=== PATIENT | male | born 1985 | race American Indian/Alaskan Native ===

== ENCOUNTER 2021-06-14 13:19 | Emergency (ER) | payer MEDICAID | END 2021-06-14 14:06 | disposition left against medical advice (07) | LOC: DL.ED 13:19 | DX: M25.511 Pain in right shoulder (principal); Z53.21 Procedure and treatment not carried out due to patient leaving prior to being seen by health care provider ==

== ENCOUNTER 2021-06-14 20:46 | Emergency (ER) | payer OTHER, MEDICAID ==
[2021-06-14] MEDS ORDERED: Acetaminophen/oxyCODONE 325-5 MG Tab PO ONE (20:47)
[2021-06-14] MEDS ORDERED: Ketorolac 30 MG/ML SDV IM ONE (21:18)
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
[2021-06-14] MEDS ORDERED: Acetaminophen/oxyCODONE 325-5 MG Tab ONE (22:07)
--- NOTE | 2021-06-14 23:00 | CR ---
PROCEDURE INFORMATION: Exam: XR Right Shoulder Exam date and time: 06/14/2021 9:25 PM Age: 35 years old Clinical indication: Other: Fall/pain; Additional info: Gross deformity to right anterior shoulder TECHNIQUE: Imaging protocol: XR Right shoulder. Views: 2 or more views. COMPARISON: No relevant prior studies available. FINDINGS: Bones/joints: A mildly comminuted and moderately overriding fracture of approximately the junction of the mid and distal thirds of the right clavicle is present. No fracture or subluxation of the humeral head is noted. Soft tissues: Normal. IMPRESSION: Closed fracture of the right clavicle as above.
== END 2021-06-14 22:15 | disposition home or self-care (01) ==
LOC: DL.ED 20:46
DX: S42.021A Displaced fracture of shaft of right clavicle, initial encounter for closed fracture (principal); E66.9 Obesity, unspecified; Z68.33 Body mass index [BMI] 33.0-33.9, adult; Z72.0 Tobacco use; V29.9XXA Motorcycle rider (driver) (passenger) injured in unspecified traffic accident, initial encounter; Y93.55 Activity, bike riding
CPT/HCPCS: 73030; 96372; 99283; A9270; J1885

== ENCOUNTER 2021-10-06 21:07 | Emergency (ER) | payer MEDICAID ==
[2021-10-06] MEDS ORDERED: Acetaminophen 500 MG Tab PO ONE (21:52)
[2021-10-06 22:44] LABS: CORONAVIRUS COVID-19 NAA POSITIVE (NEGATIVE)
== END 2021-10-06 23:17 | disposition home or self-care (01) ==
LOC: DL.ED 21:07
DX: U07.1 COVID-19 (principal); I10 Essential (primary) hypertension; E66.9 Obesity, unspecified; Z68.33 Body mass index [BMI] 33.0-33.9, adult; Z72.0 Tobacco use
CPT/HCPCS: 0240U; 99284; A9270-GY

== ENCOUNTER 2022-02-14 16:31 | Emergency (ER) | payer OTHER, MEDICAID ==
[2022-02-14] MEDS ORDERED: Sodium Chloride 0.9% 10 ML Syringe FLUSH PRN (16:40)
[2022-02-14] MEDS ORDERED: Iopamidol 612 MG/ML 100 ML Bottle IVPUSH ONE (16:52)
[2022-02-14 17:12] LABS: ANION GAP 16.8 mEq/L (7-13); CHLORIDE,CL 106 mmol/L (98-107); SODIUM,NA 143 mmol/L (136-145)
[2022-02-14] MEDS ORDERED: Ondansetron 4 MG/2 ML SDV IVPUSH ONE (17:23)
[2022-02-14] MEDS ORDERED: HYDROmorphone 0.5 MG/0.5 ML Syringe IVPUSH ONE (17:23)
[2022-02-14] MEDS ORDERED: Ondansetron 4 MG/2 ML SDV IV ONE (17:30)
[2022-02-14] MEDS ORDERED: HYDROmorphone 0.5 MG/0.5 ML Syringe IV ONE (17:31)
== END 2022-02-14 18:26 | disposition home or self-care (01) ==
LOC: DL.ED 16:31
DX: S27.322A Contusion of lung, bilateral, initial encounter (principal); I10 Essential (primary) hypertension; E66.9 Obesity, unspecified; Z68.30 Body mass index [BMI] 30.0-30.9, adult; V86.99XA Unspecified occupant of other special all-terrain or other off-road motor vehicle injured in nontraffic accident, initial encounter; Y92.410 Unspecified street and highway as the place of occurrence of the external cause
CPT/HCPCS: 36415; 70450; 71260; 72125; 72128; 74177; 80053; 80307; 85025; 85610; 93005; 96374; 96375; 99285; J1170; J2405; J3490; Q9967

== ENCOUNTER 2023-01-25 19:43 | Emergency (ER) | payer MEDICAID | END 2023-01-25 20:54 | disposition home or self-care (01) | LOC: DL.ED 19:43 | DX: S39.92XA Unspecified injury of lower back, initial encounter (principal); I10 Essential (primary) hypertension; F17.210 Nicotine dependence, cigarettes, uncomplicated; E66.9 Obesity, unspecified; Z68.32 Body mass index [BMI] 32.0-32.9, adult; X50.9XXA Other and unspecified overexertion or strenuous movements or postures, initial encounter | CPT/HCPCS: 99283 ==

== ENCOUNTER 2023-06-03 22:51 | Emergency (ER) | payer MEDICAID ==
[2023-06-03] MEDS ORDERED: Dexamethasone 4 MG/ML SDV IVPUSH ONE (23:23)
[2023-06-03] MEDS ORDERED: hydrOXYzine HCl 25 MG Tab PO ONE (23:26)
== END 2023-06-04 00:10 | disposition home or self-care (01) ==
LOC: DL.ED 22:51
DX: L23.7 Allergic contact dermatitis due to plants, except food (principal); I10 Essential (primary) hypertension; Z86.16 Personal history of COVID-19
CPT/HCPCS: 96374; 99282; A9270; J1100

== ENCOUNTER 2023-06-22 21:48 | Emergency (ER) | payer MEDICAID ==
[2023-06-22] MEDS ORDERED: ceFAZolin 2 GM Vial IVPUSH ONE (23:53)
[2023-06-23] MEDS ORDERED: Ibuprofen 600 MG Tab PO ONE (00:05)
== END 2023-06-23 00:51 | disposition home or self-care (01) ==
LOC: DL.ED 21:48
DX: L03.116 Cellulitis of left lower limb (principal); F17.210 Nicotine dependence, cigarettes, uncomplicated; I10 Essential (primary) hypertension; Z86.16 Personal history of COVID-19
CPT/HCPCS: 96374; 99283; 99284; A9270; J0690

== ENCOUNTER 2023-09-21 21:02 | Emergency (ER) | payer MEDICAID ==
[2023-09-21] MEDS ORDERED: Ibuprofen 600 MG Tab PO ONE (21:13)
[2023-09-21 21:50] LABS: CORONAVIRUS COVID-19 NAA NEGATIVE (NEGATIVE); INFLUENZA A NAA POSITIVE (NEGATIVE); INFLUENZA B NAA NEGATIVE (NEGATIVE); RESPIRATORY SYNCYTIAL VIR NAA NEGATIVE (NEGATIVE)
[2023-09-21] MEDS ORDERED: Oseltamivir 75 MG Cap PO ONE (22:08)
== END 2023-09-21 22:31 | disposition home or self-care (01) ==
LOC: DL.ED 21:02
DX: J10.1 Influenza due to other identified influenza virus with other respiratory manifestations (principal); I10 Essential (primary) hypertension; F17.210 Nicotine dependence, cigarettes, uncomplicated; Z86.16 Personal history of COVID-19; Z20.822 Contact with and (suspected) exposure to COVID-19; Z79.899 Other long term (current) drug therapy
CPT/HCPCS: 0241U; 71045; 94762; 99284; 99285; A9270-GY

== ENCOUNTER 2024-02-03 08:14 | Emergency (ER) | payer MEDICAID ==
[2024-02-03] MEDS: predniSONE 20 MG Tab PO ONE (08:55)
[2024-02-03] MEDS: Acetaminophen 500 MG Tab PO ONE (08:55)
[2024-02-03] MEDS: Ketorolac 30 MG/ML SDV IM ONE (08:56)
== END 2024-02-03 10:18 | disposition home or self-care (01) ==
LOC: DL.ED 08:14
DX: M54.40 Lumbago with sciatica, unspecified side (principal); I10 Essential (primary) hypertension; Z79.899 Other long term (current) drug therapy; Z86.16 Personal history of COVID-19
CPT/HCPCS: 72131; 96372; 99284; A9270; J1885; J7512

== ENCOUNTER 2024-08-20 15:33 | Emergency (ER) | payer MEDICAID, OTHER | END 2024-08-20 17:48 | disposition swing bed (61) | LOC: DL.ED 15:33 | DX: Z02.89 Encounter for other administrative examinations (principal); R45.851 Suicidal ideations; I10 Essential (primary) hypertension; Z86.16 Personal history of COVID-19; F17.210 Nicotine dependence, cigarettes, uncomplicated; Z79.899 Other long term (current) drug therapy | CPT/HCPCS: 99283; 99284 ==